=== PATIENT | female | born 1970 | race Caucasian/White ===

== ENCOUNTER → 2018-01-03 10:19 | Outpatient (CLI) | payer OTHER, SELFPAY ==
[2018-01-03 11:16] LABS: Absolute Lymphocyte Count 1.54 X10^3/ul (0.83-4.51); Absolute Neutrophil Count 2.8 X10^3/uL (2.0-7.7); Basophil# 0.01 X10^3/uL; Basophil% 0.2 % (0-1); Eosinophil# 0.38 X10^3/uL; Eosinophils% 7.3 % (0-5); Lymphocyte # 1.54 X10^3/ul (4.0); Lymphocyte % 29.6 % (19-41); Mean Corp Hgb Conc 32.6 g/gl (32-36); Mean Corpuscular Hgb 28.3 pg (27.0-32.0); Mean Platelet Vol. 10.8 fl (6.2-12.0); Monocyte# 0.46 X10^3/uL; Monocyte% 8.8 % (0-10); Neutrophil # 2.81 X10^3/uL (2.7-7.7); Neutrophil % 53.9 % (47-70); Platelet Count 207 K/mm3 (150-450); RBC Distribution Width CV 13.6 % (11.6-14.6); RBC Distribution Width SD 42.9 fl (35.1-43.9); Red Blood Count 4.94 M/mm3 (4.2-5.4); White Blood Count 5.2 K/mm3 (4.4-11.0)
[2018-01-03 11:18] LABS: POSITIVE COUNT NO; POSITIVE DIFFERENTIAL NO; POSITIVE MORPHOLOGY NO
[2018-01-08 09:32] LABS: Alternaria alternata <0.10 kU/L (Class 0); Bermuda Grass 0.73 kU/L (Class II); Bluegrass, Kentucky 0.62 kU/L (Class II); Cat Hair/Dander, Standard 0.63 kU/L (Class II); D farinae Mite <0.10 kU/L (Class 0); D pteronyssinus <0.10 kU/L (Class 0); Dog Epithelia 0.28 kU/L (Class 0/I); Elm, American White 1.12 kU/L (Class II); Oak, White 0.21 kU/L (Class 0/I); Plantain, English 0.69 kU/L (Class II)
[2018-01-08 11:24] LABS: Mouse Urine <0.10 kU/L (Class 0)
[2018-01-08 12:06] LABS: Aspirgillus flavus Negative (Neg:<1:1); Aspirgillus fumigatus Negative (Neg:<1:1); Aspirgillus niger Negative (Neg:<1:1)
[2018-01-08 12:39] LABS: Immunoglobulin E 87 IU/mL (0-100)
== END ==
PROVIDERS: Family Provider Family Medicine; PCP Family Medicine; Visit Provider Nurse Practitioner Acute Care
DX: J45.40 Moderate persistent asthma, uncomplicated (principal)
CPT/HCPCS: 36415; 82785; 85025; 86003; 86606